=== PATIENT | female | born 1950 | race Caucasian/White ===

== ENCOUNTER 2018-10-05 12:00 | Outpatient (CLI) | payer MEDICARE ==
--- NOTE | 2018-10-05 14:17 | RAD ---
THREE VIEWS RIGHT WRIST: DATE: 10/05/2018. HISTORY: Fell 2 months ago, right wrist pain. FINDINGS: There is no evidence of a fracture or dislocation. Mild degenerative changes are seen at the 1st car pometacarpal joint. IMPRESSION: No acute osseous abnormality. POS: GUI
== END 2018-10-05 12:01 | disposition home or self-care (01) ==
LOC: SCSRAD 12:00
PROVIDERS: ATTEND Family Medicine
DX: M25.531 Pain in right wrist (principal)

== ENCOUNTER 2019-08-15 14:06 | Outpatient (CLI) | payer MEDICARE, OTHER ==
--- NOTE | 2019-08-15 15:39 | RAD ---
CERVICAL SPINE: 08/15/19 A total of nine views with lateral views obtained in neutral, flexion and extension. INDICATIONS: Cervicalgia. Moderate degenerative changes of the cervical spine noted. Very pronounced anterior bridging osteoph ytes are seen at C4-5, C5-6 and C6-7. These large anterior osteophytes would encroach onto the esopha sergei and could produce swallowing difficulty. There is loss of disc space at C5-6 and C6-7. Posterior spondylosis at both of these levels encroach into the spinal canal. Minimal anterolisthesis at C4-5 which appears to exacerbation with flexion. Facet hypertrophy. IMPRESSION: Moderate to severe hypertrophic degenerative changes of cervical spine with large anterior bridging o steophytes in the mid and lower cervical spine as described. Evidence of neural foraminal encroachm ent and probable spinal canal encroachment due to spondylosis. Consider CT scan cervical spine to bet ter evaluate osseous hypertrophy. POS: [facility]
== END 2019-08-15 14:07 | disposition home or self-care (01) ==
LOC: SCSRAD 14:06
PROVIDERS: ATTEND Family Medicine
DX: M54.2 Cervicalgia (principal); M47.812 Spondylosis without myelopathy or radiculopathy, cervical region; M25.78 Osteophyte, vertebrae; M89.38 Hypertrophy of bone, other site
CPT/HCPCS: 72052

== ENCOUNTER 2025-01-22 10:17 | Outpatient (CLI) | payer OTHER | END 2025-01-22 10:18 | disposition home or self-care (01) | LOC: SCSMRI 10:17 | PROVIDERS: ATTEND Family Medicine | DX: M47.26 Other spondylosis with radiculopathy, lumbar region (principal); R29.898 Other symptoms and signs involving the musculoskeletal system; M51.16 Intervertebral disc disorders with radiculopathy, lumbar region; M48.061 Spinal stenosis, lumbar region without neurogenic claudication; M47.817 Spondylosis without myelopathy or radiculopathy, lumbosacral region; M51.379 Other intervertebral disc degeneration, lumbosacral region without mention of lumbar back pain or lower extremity pain; M25.78 Osteophyte, vertebrae; M43.17 Spondylolisthesis, lumbosacral region; M51.360 Other intervertebral disc degeneration, lumbar region with discogenic back pain only; M51.370 Other intervertebral disc degeneration, lumbosacral region with discogenic back pain only | CPT/HCPCS: 72158 ==